=== PATIENT | male | born 1990 | race African-American/Black ===

== ENCOUNTER 2017-08-18 13:30 | Emergency (ER) | payer OTHER, SELFPAY ==
[2017-08-18 13:36] VITALS: BP 128/74; PULSE 115; RESP 18; TEMP 36.9; O2SAT 98
--- NOTE | 2017-08-18 14:42 | ED.BACK ---
HPI - Back Pain/Injury <KYLE Verdin - Last Filed: 08/18/17 17:12> General Chief Complaint: Back Pain/Injury Stated Complaint: back pain Source: patient Mode of arrival: ambulatory Limitations: no limitations History of Present Illness HPI Narrative: pt says he has been having intermittent low back pain since last September, he had mri done and was told he has bulging discs, in process of seeing ortho and doing pt to determine if surgery is recommended, went to [facility] over the weekend, given naprosyn and muscle relaxer, which only helped a little, denies any new injury/traums or other issues, pain is worse with movement and walking MD Complaint: back pain Onset (ago): year(s) (one) Duration: constant Similar Symptoms Previously: Yes Location: lumbar spine and left lower back Severity: moderate Quality: other (shooting) Radiation: buttocks (L) and left leg Severity scale (1-10): 8 Relieving factors: none Exacerbating factors: movement and walking Context: unknown Associated symptoms: denies other symptoms Treatments prior to arrival: NSAIDS and other medications (muscle relaxer) Related Data Previous Rx's Medication Instructions Recorded methylprednisolone [Medrol (Jim)] See Label Instructions PO PER PKG 08/18/17 DIR #21 each tramadol [Ultram] 50 mg PO Q6H PRN #20 tab 08/18/17 Allergies Allergy/AdvReac Type Severity Reaction Status Date / Time No Known Drug Allergies Allergy Verified 08/18/17 13:42 Review of Systems <KYLE Verdin - Last Filed: 08/18/17 17:12> Review of Systems All systems reviewed & are unremarkable except as noted in HPI and below Constitutional Reports as per HPI, Denies fever(s) and Denies frequent falls Eyes Denies change in vision, Denies eye discharge and Denies irritation ENT Ears, Nose, Mouth, and Throat: Denies change in voice, Denies neck pain and Denies sore throat Cardiovascular Denies chest pain, Denies irregular heart rhythm, Denies lightheadedness, Denies palpitations, Denies dyspnea, Denies dyspnea on exertion and Denies orthopnea Respiratory Denies cough, Denies dyspnea, Denies dyspnea on exertion and Denies wheezing Gastrointestinal Gastrointestinal: Denies abdominal pain, Denies change in bowel habits, Denies diarrhea, Denies nausea and Denies vomiting Genitourinary Denies hematuria, Denies difficulty urinating, Denies flank pain, Denies urinary incontinence and Denies urinary urgency Musculoskeletal Reports system reviewed and no additional complaints, except as docu, Reports as per HPI, Reports limited range of motion, Denies muscle weakness, Denies neck pain, Denies numbness, Reports radiating pain into limb and Denies tingling Integumentary/Breasts Denies pruritus, Denies erythema, Denies rash and Denies wounds Neurologic Denies frequent falls, Denies numbness, Denies sensory deficit, Denies tingling and Denies paresthesias Psychiatric Denies anxiety, Denies depression, Denies homicidal ideation and Denies suicidal ideation Endocrine Denies palpitations Hematologic/Lymphatic Denies easy bruising Allergic/Immunologic Denies wheezing Exam <KYLE Verdin - Last Filed: 08/18/17 17:12> Initial Vital Signs Initial Vital Signs: Vital Signs Temperature 98.5 F 08/18/17 13:36 Pulse Rate 115 H 08/18/17 13:36 Respiratory Rate 18 08/18/17 13:36 Blood Pressure 128/74 H 08/18/17 13:36 Pulse Oximetry 98 08/18/17 13:36 Const General: cooperative, healthy appearing, well developed, well groomed, No ill appearing, No intoxicated appearing and well hydrated Nutritional Appearance: average body habitus and well nourished Orientation: alert, awake, oriented x3 and not confused [facility] Head: normocephalic and atraumatic Ears: external ears normal Nose: external nose normal and No nasal discharge Face and sinus: face symmetric, sinus tenderness and dry mucous membranes Mouth: oral mucosae normal and moist mucous membranes Teeth and gingiva: dentition normal Eyes General: appearance normal, both eyes and all related structures Eyelids: eyelids normal Conjunctivae: conjunctivae normal Sclera: sclerae normal Pupils: PERRL EOM: EOM intact bilaterally Neck Neck: normal visual inspection, full ROM, trachea midline, No midline deformity and No JVD Chest Chest: normal inspection of the chest Resp Effort & Inspection: normal respiratory effort, able to speak in complete sentences, no respiratory distress and no use of accessory muscles Auscultation: clear to auscultation bilaterally, no rales, no rhonchi and no wheezes Cardio Rate: regular rate Rhythm: regular rhythm Heart Sounds: no click, no gallops, no murmurs and no rubs Pulses: normal peripheral pulses GI Inspection: non-distended Palpation: soft, no hepatosplenomegaly, No guarding, No pulsatile mass and No tender Back/Spine/Pelvis Back: normal to inspection, No back tenderness and No CVA tenderness Cervical Spine: cervical ROM normal and No pain with cervical ROM Thoracic/Lumbar Spine: thoracic and lumbar spine normal to inspection and thoraco-lumbar ROM normal Sacroiliac Joints: nontender Sacrum: no tenderness Coccyx: no tenderness Skin General: no rashes or lesions noted, No jaundice and No petechiae Neuro General: alert, oriented x3, gait normal and no focal motor deficits Speech: speech normal Extrem General: full ROM, no clubbing, cyanosis or edema, no pedal edema and no calf tenderness Psych Appearance: well kempt Mental Status: mental status grossly normal Attitude: cooperative Thought Content: normal and suicidality Judgment: judgment good <Mukul Salinas DO - Last Filed: 08/19/17 08:41> Initial Vital Signs Initial Vital Signs: Vital Signs Temperature 98.5 F 08/18/17 13:36 Pulse Rate 115 H 08/18/17 13:36 Respiratory Rate 18 08/18/17 13:36 Blood Pressure 128/74 H 08/18/17 13:36 Pulse Oximetry 98 08/18/17 13:36 Course <KYLE Verdin - Last Filed: 08/18/17 17:12> Hospital Course: tx options discussed and pt declined xrays, but agreed to toradol injection, and rx ultram and steroids, says he got toradol at [facility], but he would try it again if it might help Orders Ordered: Discontinued Medications Ketorolac Tromethamine (Toradol) 60 mg IM NOW ONE Stop: 08/18/17 14:51 Last Admin: 08/18/17 14:58 Dose: 60 mg Vital Signs - 8 hr 08/18/17 13:36 08/18/17 15:18 Temperature 98.5 F Pulse Rate 115 H 81 Respiratory Rate 18 16 Blood Pressure 128/74 H Blood Pressure [Left Arm] 136/76 H Pulse Oximetry 98 100 <Mukul Salinas DO - Last Filed: 08/19/17 08:41> Orders Ordered: Discontinued Medications Ketorolac Tromethamine (Toradol) 60 mg IM NOW ONE Stop: 08/18/17 14:51 Last Admin: 08/18/17 14:58 Dose: 60 mg Vital Signs - 8 hr 08/18/17 13:36 08/18/17 15:18 Temperature 98.5 F Pulse Rate 115 H 81 Respiratory Rate 18 16 Blood Pressure 128/74 H Blood Pressure [Left Arm] 136/76 H Pulse Oximetry 98 100 MDM - Back Pain/Injury <KYLE Verdin - Last Filed: 08/18/17 17:12> Differential Diagnosis Differential diagnosis: Likely lumbar radiculopathy, sciatica, strain of lumbar region, renal colic, pyelonephritis and AAA Discharge Plan Departure Patient Disposition: Home, Self-Care Clinical Impression: Sciatica, Chronic low back pain Discharge Date/Time: 08/18/17 15:45 Interventions: ED Discharge Assessment Last Done: 08/18/17 15:45 Instructions: Managing Chronic Low Back Pain, DI for Low Back Pain, DI for Sciatica Prescriptions: New tramadol [Ultram] 50 mg tablet 50 mg PO Q6H PRN (Reason: pain) Qty: 20 RF: 0 methylprednisolone [Medrol (Jim)] 4 mg tablets,dose pack See Label Instructions PO PER PKG DIR Qty: 21 RF: 0 Referrals: Tyrese Sears MD [Non-Staff] - (in approx x5 days ) <Mukul Salinas DO - Last Filed: 08/19/17 08:41> Cosign ED Attending Cosignature Attestation: I was immediately available in the department for consultation. This documentation has been reviewed and I agree with assessment and plan. Supervised by Mukul Salinas DO
[2017-08-18] MEDS: KETOROLAC 60 MG/2 ML VIAL IM (14:58)
[2017-08-18 15:18] VITALS: BP 136/76; PULSE 81; RESP 16; O2SAT 100
== END 2017-08-18 15:45 | disposition home or self-care (01) ==
PROVIDERS: Emergency Provider Nurse Practitioner
DX: M54.30 Sciatica, unspecified side (principal); M54.5 Low back pain
CPT/HCPCS: 96372; 99282; 99283; J1885